=== PATIENT | male | born 1965 | race Caucasian/White ===

== ENCOUNTER → 2020-01-04 | Outpatient (CLI) | payer BC ==
--- NOTE | 2020-01-04 12:12 | CT ---
EXAMINATION TYPE: CT abdomen pelvis wo con DATE OF EXAM: 01/04/2020 COMPARISON: HISTORY: Left flank pain CT DLP: 503.8 mGycm Automated exposure control for dose reduction was used. TECHNIQUE: Helical acquisition of images was performed from the lung bases through the pelvis. FINDINGS: LUNG BASES: No significant abnormality is appreciated. LIVER/GB: No significant abnormality is appreciated. PANCREAS: No significant abnormality is seen. SPLEEN: No significant abnormality is seen. ADRENALS: No significant abnormality is seen. KIDNEYS: There is a 3 mm right upper and mid pole renal calculus with no hydronephrosis. There is mild left hydronephrosis and mild proximal periureteral edema. There is a 2 mm distal left u reteral calculus. URINARY BLADDER: Posterior impression on the bladder is most likely related to markedly enlarged pro state gland. ADENOPATHY: None visualized. OSSEOUS STRUCTURES: No significant abnormality is seen. BOWEL: No significant abnormality is seen. OTHER: Aorta of normal caliber. Numerous vascular calcifications in the pelvis IMPRESSION: 1. Mild left hydronephrosis secondary to distal left 2 mm ureteral calculus. 2. Nonobstructing right nephrolithiasis. 3. Markedly enlarged prostate gland resulting in indentation of the bladder recommend correlation wit h PSA.
== END | disposition home or self-care (01) ==
LOC: RADCTMAIN 11:20
PROVIDERS: ATTEND Internal Medicine
DX: N13.2 Hydronephrosis with renal and ureteral calculous obstruction (principal); N40.0 Benign prostatic hyperplasia without lower urinary tract symptoms
CPT/HCPCS: 74176

== ENCOUNTER 2020-08-02 16:17 | Emergency (ER) | payer BC ==
[2020-08-02 16:40] VITALS: RESP 18
[2020-08-02] MEDS ORDERED: INDOMETHACIN 25 MG CAP PO STA (17:38)
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
[2020-08-02] MEDS ORDERED: methylPREDNISolone SOD SUCCI 125 MG/2 ML VIAL IM ONE (18:32)
[2020-08-02 19:10] VITALS: BP 140/78; PULSE 57; TEMP 98.2
== END 2020-08-02 18:40 | disposition home or self-care (01) ==
LOC: EC 16:17
DX: M10.061 Idiopathic gout, right knee (principal); M10.9 Gout, unspecified; Z79.899 Other long term (current) drug therapy
CPT/HCPCS: 99283; 96372; J2930